=== PATIENT | male | born 1990 | race Caucasian/White ===

== ENCOUNTER → 2017-05-07 | Emergency (ER) | payer OTHER ==
[~2017-05-07] VITALS: Ht 162.6 cm; Wt 61.2 kg
[~2017-05-07] MED LIST: DEPAKOTE ER250 MG PO; GRALISE1 EACH PO
== END | disposition home or self-care (01) ==
LOC: ER 21:11
DX: R51 Headache (principal); F43.11 Post-traumatic stress disorder, acute; Y08.89XA Assault by other specified means, initial encounter